=== PATIENT | female | born 1955 | race Asian ===

== ENCOUNTER 2022-08-07 18:35 | Inpatient (IN) | payer OTHER ==
[~2022-08-07 18:35] MED LIST: Iopamidol 370 76% 100 ML VIAL ONE
[2022-08-07 20:43] LABS: SARS-CoV-2 NAA Rapid Test DETECTED (NotDetected)
[2022-08-07 21:04] LABS: ALT (SGPT) 42 U/L (8-55); AST (SGOT) 66 U/L (5-34); Albumin 3.9 g/dL (3.4-4.8); Alkaline Phosphatase 105 U/L (40-110); BUN (Urea Nitrogen) 7 mg/dL (9.8-20.1); Bilirubin, Total 1.3 mg/dL (0.2-1.2); Calc. Creatinine Clearance 0 mL/min (70-130); Calcium 8.7 mg/dL (7.8-10.44); Carbon Dioxide 24 mmol/L (23-31); Estimated GFR 98; Glucose 137 mg/dL (80-115); Potassium 3.3 mmol/L (3.5-5.1); Protein, Total 7.9 g/dL (5.8-8.1)
[2022-08-07 21:05] LABS: #Basophils 0.1 10x3/uL (0.0-0.2); #Monocytes 1.1 10x3/uL (0.0-1.1); #Neutrophils 14.2 10x3/uL (1.5-8.4); %Basophils 0.3 % (0.0-2.0); %Eosinophils 0.2 % (0.0-6.0); %Lymphocytes 6.7 % (18.0-47.0); %Monocytes 6.5 % (0.0-10.0); %Neutrophils 85.5 % (40.0-75.0); Hemoglobin 14.4 g/dL (12.0-15.5); Mean Corpuscular Hemoglobin 32.1 pg (27.0-33.0); Mean Corpuscular Volume 78.2 fl (81.6-98.3); Mean Platelet Volume 8.4 fl (7.4-10.4); Platelet Count 276 10x3/uL (150-450); RBC Distribution Width 11.6 % (11.5-14.5); Red Blood Cell (RBC) Count 4.49 10x6/uL (3.90-5.03); White Blood Cell (WBC) Count 16.7 10x3/uL (3.5-10.5)
[2022-08-07 21:14] LABS: Sodium 101 mmol/L (136-145)
[2022-08-07 21:21] LABS: Chloride Less than 65 mmol/L (98-107)
[2022-08-07 21:40] LABS: Actual Bicarbonate (HCO3v) 30 mEq/L (22-28); Base Excess 6.5 mEq/L (-2.0 to +3.0); Calcium, Ionized (venous) 0.97 mmol/L (1.16-1.32); Chloride (VBG) 65 mmol/L (98-106); Potassium (VBG) 3.05 mmol/L (3.70-5.30); Puncture Site Other Site; pH (venous) 7.52 (7.32-7.43)
[2022-08-07] MEDS ORDERED: Ondansetron PF 4 MG/2 ML Vial IVP PRN (22:02)
[2022-08-07] MEDS ORDERED: Calcium Carbonate 500 MG ChewTAB PO PRN (22:02)
[2022-08-07] MEDS ORDERED: Senokot S 8.6-50 MG TAB PO PRN (22:02)
[2022-08-07] MEDS ORDERED: Acetaminophen 325 MG TAB PO PRN (22:02)
[2022-08-07] MEDS ORDERED: hydrALAZINE 20 MG/ML VIAL SLOW IVP PRN (22:13)
[2022-08-07 22:55] LABS: Free T4 (Free Thyroxine) 1.68 ng/dL (0.70-1.48); Thyroid Stimulating Hormone 0.1889 uIU/mL (0.35-4.94)
[2022-08-07 23:11] LABS: Alcohol Less than 10 mg/dL (Less than 10); Magnesium 1.4 mg/dL (1.6-2.6)
[2022-08-08] MEDS ORDERED: Potassium Chloride 20 MEQ TAB PO SCH ×2 (00:30→09:00)
[2022-08-08] MEDS ORDERED: Sodium Chloride 3% 100 ML IVPB SCH ×2 (00:30→07:30)
[2022-08-08] MEDS ORDERED: Furosemide 20 MG/2 ML VIAL SLOW IVP SCH (00:30)
[2022-08-08] MEDS ORDERED: Nitroglycerin 2% Ointment 1 INCH/1 GM Packet TOP SCH (00:30)
[2022-08-08 00:54] LABS: Bilirubin Neg (Negative); Blood, Urine 150 (Negative); Clarity Clear (Clear); Glucose, Urine (Dipstick) Normal (Negative); Ketone, Urine Negative (Negative); Leukocyte Negative (Negative); Nitrite Negative (Negative); Protein, Urine (Dipstick) 30 mg/dl (Neg-Trace); Urobilinogen Normal mg/dL (Less than 2)
[2022-08-08] MEDS ORDERED: Magnesium 2 GM/50 ML(in water) 2 GM in Premix Bag 1 BAG IVPB SCH (01:00)
[2022-08-08 01:08] LABS: Legionella Urinary Ag Negative (Negative); Strep pneumo Urine Ag NEGATIVE (NEGATIVE)
[2022-08-08 01:20] LABS: Bacteria/HPF None Seen HPF (None Seen); RBC/HPF 0-3 HPF (0-3); Squamous Epithelial 0-3 HPF (0-3)
[2022-08-08 01:24] LABS: Amphetamine Not Detected (NotDetected); Barbiturates Screen Not Detected (NotDetected); Benzodiazepine Screen Not Detected (NotDetected); Cocaine Metabolite Screen Not Detected (NotDetected); Methadone Not Detected (NotDetected); Methamphetamine Not Detected (NotDetected); Opiate Screen Not Detected (NotDetected); Oxycodone Screen Not Detected (NotDetected); Phencyclidine (PCP) Not Detected (NotDetected); THC/Cannabinoid Screen Not Detected (NotDetected); Tricyclic Screen Not Detected (NotDetected)
[2022-08-08 04:37] LABS: ALT (SGPT) 50 U/L (8-55); AST (SGOT) 80 U/L (5-34); Albumin 3.7 g/dL (3.4-4.8); Alkaline Phosphatase 103 U/L (40-110); BUN (Urea Nitrogen) 7 mg/dL (9.8-20.1); Bilirubin, Total 1.2 mg/dL (0.2-1.2); CRP (Inflammatory) 9.73 mg/dL (= or < 0.5); Calc. Creatinine Clearance 84 mL/min (70-130); Calcium 8.3 mg/dL (7.8-10.44); Carbon Dioxide 23 mmol/L (23-31); Estimated GFR 99; Globulin 3.8 g/dL (2.4-3.5); Glucose 109 mg/dL (80-115); Potassium 3.1 mmol/L (3.5-5.1); Protein, Total 7.5 g/dL (5.8-8.1)
[2022-08-08 04:41] LABS: Chloride Less than 65 mmol/L (98-107)
[2022-08-08 04:42] LABS: Sodium Less than 100 mmol/L (136-145)
[2022-08-08 05:06] VITALS: BMI 22.4
[2022-08-08 07:38] LABS: Hemoglobin 14.6 g/dL (12.0-15.5); Mean Corpuscular Volume 77.9 fl (81.6-98.3); Mean Platelet Volume 9.1 fl (7.4-10.4); RBC Distribution Width 11.7 % (11.5-14.5); Red Blood Cell (RBC) Count 4.75 10x6/uL (3.90-5.03); White Blood Cell (WBC) Count 16.7 10x3/uL (3.5-10.5)
[2022-08-08 07:39] LABS: Platelet Count 274 10x3/uL (150-450)
[2022-08-08 07:40] LABS: Mean Corpuscular HGB CONC 39.5 g/dL (32.0-36.0); Mean Corpuscular Hemoglobin 30.7 pg (27.0-33.0)
[2022-08-08 07:41] LABS: #Monocytes 1.7 10x3/uL (0.0-1.1); #Neutrophils 13.2 10x3/uL (1.5-8.4); %Basophils 0.2 % (0.0-2.0); %Eosinophils 0.1 % (0.0-6.0); %Monocytes 10.3 % (0.0-10.0); %Neutrophils 78.6 % (40.0-75.0)
[2022-08-08 08:27] LABS: BUN (Urea Nitrogen) 8 mg/dL (9.8-20.1); Calc. Creatinine Clearance 77 mL/min (70-130); Calcium 8.4 mg/dL (7.8-10.44); Carbon Dioxide 25 mmol/L (23-31); Estimated GFR 98; Glucose 117 mg/dL (80-115); Potassium 3.2 mmol/L (3.5-5.1); Sodium 100 mmol/L (136-145)
[2022-08-08] MEDS: Famotidine/PF 20 mg/2ml Vial SLOW IVP SCH ×2 (08:28→20:32)
[2022-08-08] MEDS: Enoxaparin Sodium 40 MG/0.4 ML SYRINGE SC SCH (08:28)
[2022-08-08] MEDS ORDERED: NIRMATRELVIR 150 MG/RITONAVIR 100 MG PO SCH ×3 (09:00)
[2022-08-08] MEDS: Magnesium 2 GM/50 ML(in water) 2 GM in Premix Bag 1 BAG IVPB SCH ×2 (09:00→10:39)
[2022-08-08 09:10] LABS: Platelet Morphology Comment Appears Adequate
[2022-08-08 09:11] LABS: Crenated RBC SLIGHT = 1-5 cells (100X) (None Seen); Elliptocytes SLIGHT = 2-5 cells (100X) (0-1/hpf); Polychromasia SLIGHT = 2-3 cells (100X) (0-2/hpf); Spherocytes SLIGHT = 1-5 cells (100X) (None Seen)
[2022-08-08 09:22] LABS: Phosphorus 1.9 mg/dL (2.3-4.7)
[2022-08-08 09:27] LABS: Chloride Less than 65 mmol/L (98-107)
[2022-08-08] MEDS: Potassium Chloride 20 MEQ TAB PO SCH ×2 (10:39→15:39)
[2022-08-08 12:16] LABS: Anion Gap 15 mmol/L (10-20); BUN (Urea Nitrogen) 8 mg/dL (9.8-20.1); Calc. Creatinine Clearance 79 mL/min (70-130); Carbon Dioxide 19 mmol/L (23-31); Estimated GFR 98; Glucose 164 mg/dL (80-115); Potassium 3.1 mmol/L (3.5-5.1)
[2022-08-08 12:21] LABS: Chloride 69 mmol/L (98-107); Sodium 100 mmol/L (136-145)
[2022-08-08] MEDS ORDERED: Sodium Chloride 1 GM TAB PO SCH (13:00)
[2022-08-08] MEDS ORDERED: Potassium Phosphate 30 MMOL in Sodium Chloride 0.9% 250 ML 250 ML IVPB SCH (13:00)
[2022-08-08 13:32] LABS: Sodium Less than 100.0 mmol/L (133-146)
[2022-08-08 13:33] LABS: Potassium, Urine 36.6 mmol/L
[2022-08-08] MEDS: Sodium Chloride 1 GM TAB PO SCH (15:39)
[2022-08-08 16:02] LABS: Anion Gap 13 mmol/L (10-20); BUN (Urea Nitrogen) 8 mg/dL (9.8-20.1); Calc. Creatinine Clearance 82 mL/min (70-130); Calcium 7.6 mg/dL (7.8-10.44); Carbon Dioxide 22 mmol/L (23-31); Estimated GFR 99; Glucose 101 mg/dL (80-115); Potassium 3.6 mmol/L (3.5-5.1)
[2022-08-08 16:03] LABS: Chloride 74 mmol/L (98-107); Sodium 105 mmol/L (136-145)
[2022-08-08 20:49] LABS: Anion Gap 12 mmol/L (10-20); BUN (Urea Nitrogen) 7 mg/dL (9.8-20.1); Calc. Creatinine Clearance 84 mL/min (70-130); Calcium 7.7 mg/dL (7.8-10.44); Carbon Dioxide 23 mmol/L (23-31); Chloride 80 mmol/L (98-107); Estimated GFR 100; Glucose 104 mg/dL (80-115); Potassium 4.9 mmol/L (3.5-5.1)
[2022-08-08 20:55] LABS: Sodium 110 mmol/L (136-145)
[2022-08-08] MEDS ORDERED: Dextrose 5% in Water 1,000 ML IV SCH (21:30)
[2022-08-09 00:54] LABS: Anion Gap 11 mmol/L (10-20); BUN (Urea Nitrogen) 7 mg/dL (9.8-20.1); Calc. Creatinine Clearance 87 mL/min (70-130); Calcium 7.9 mg/dL (7.8-10.44); Carbon Dioxide 22 mmol/L (23-31); Chloride 82 mmol/L (98-107); Estimated GFR 100; Glucose 100 mg/dL (80-115); Potassium 5.2 mmol/L (3.5-5.1)
[2022-08-09 00:55] LABS: Sodium 110 mmol/L (136-145)
[2022-08-09 04:43] LABS: Albumin 3.5 g/dL (3.4-4.8); Anion Gap 14 mmol/L (10-20); BUN (Urea Nitrogen) 7 mg/dL (9.8-20.1); Calc. Creatinine Clearance 79 mL/min (70-130); Calcium 8.2 mg/dL (7.8-10.44); Carbon Dioxide 21 mmol/L (23-31); Chloride 81 mmol/L (98-107); Estimated GFR 98; Glucose 88 mg/dL (80-115); Magnesium 2.3 mg/dL (1.6-2.6); Potassium 5.2 mmol/L (3.5-5.1)
[2022-08-09 04:45] LABS: Phosphorus 1.9 mg/dL (2.3-4.7); Sodium 111 mmol/L (136-145)
[2022-08-09] MEDS ORDERED: Sodium Phosphate 30 MMOL in Sodium Chloride 0.9% 250 ML 250 ML IVPB SCH (06:00)
[2022-08-09] MEDS: Enoxaparin Sodium 40 MG/0.4 ML SYRINGE SC SCH (07:50)
[2022-08-09] MEDS: Famotidine/PF 20 mg/2ml Vial SLOW IVP SCH ×2 (07:50→20:39)
[2022-08-09 08:53] LABS: Anion Gap 16 mmol/L (10-20); BUN (Urea Nitrogen) 6 mg/dL (9.8-20.1); Calc. Creatinine Clearance 78 mL/min (70-130); Calcium 8.2 mg/dL (7.8-10.44); Carbon Dioxide 19 mmol/L (23-31); Chloride 83 mmol/L (98-107); Estimated GFR 98; Glucose 102 mg/dL (80-115); Potassium 5.1 mmol/L (3.5-5.1)
[2022-08-09 08:58] LABS: Sodium 113 mmol/L (136-145)
[2022-08-09] MEDS ORDERED: Sodium Bicarbonate Tab 325 MG TAB PO SCH (09:00)
[2022-08-09 13:32] LABS: Anion Gap 15 mmol/L (10-20); BUN (Urea Nitrogen) 8 mg/dL (9.8-20.1); Calc. Creatinine Clearance 74 mL/min (70-130); Calcium 8.1 mg/dL (7.8-10.44); Carbon Dioxide 19 mmol/L (23-31); Chloride 83 mmol/L (98-107); Estimated GFR 97; Glucose 125 mg/dL (80-115); Potassium 4.4 mmol/L (3.5-5.1)
[2022-08-09 13:40] LABS: Sodium 113 mmol/L (136-145)
[2022-08-09] MEDS ORDERED: oxyCODONE 5 MG TAB PO PRN ×2 (16:19→16:33)
[2022-08-09] MEDS ORDERED: Ibuprofen 600 MG TAB PO PRN (16:47)
[2022-08-09] MEDS: Guaifenesin DM 100-10/5 ML UDCUP PO PRN (18:20)
[2022-08-09 19:25] LABS: Anion Gap 13 mmol/L (10-20); BUN (Urea Nitrogen) 9 mg/dL (9.8-20.1); Calc. Creatinine Clearance 69 mL/min (70-130); Calcium 8.6 mg/dL (7.8-10.44); Carbon Dioxide 24 mmol/L (23-31); Chloride 81 mmol/L (98-107); Estimated GFR 95; Glucose 175 mg/dL (80-115); Potassium 4.4 mmol/L (3.5-5.1)
[2022-08-09 19:34] LABS: Sodium 114 mmol/L (136-145)
[2022-08-09] MEDS: Sodium Chloride 1 GM TAB PO SCH (20:39)
[2022-08-09] MEDS: Sodium Bicarbonate Tab 325 MG TAB PO SCH (20:39)
[2022-08-09 21:21] LABS: Anion Gap 13 mmol/L (10-20); BUN (Urea Nitrogen) 10 mg/dL (9.8-20.1); Calc. Creatinine Clearance 72 mL/min (70-130); Calcium 8.3 mg/dL (7.8-10.44); Carbon Dioxide 22 mmol/L (23-31); Chloride 82 mmol/L (98-107); Estimated GFR 96; Glucose 129 mg/dL (80-115); Potassium 3.7 mmol/L (3.5-5.1)
[2022-08-09 21:23] LABS: Sodium 113 mmol/L (136-145)
[2022-08-10 02:44] LABS: Anion Gap 13 mmol/L (10-20); BUN (Urea Nitrogen) 9 mg/dL (9.8-20.1); Calc. Creatinine Clearance 82 mL/min (70-130); Calcium 8.4 mg/dL (7.8-10.44); Carbon Dioxide 23 mmol/L (23-31); Chloride 84 mmol/L (98-107); Estimated GFR 100; Glucose 106 mg/dL (80-115); Potassium 3.6 mmol/L (3.5-5.1)
[2022-08-10 02:48] LABS: Sodium 116 mmol/L (136-145)
[2022-08-10 03:22] LABS: Magnesium 1.9 mg/dL (1.6-2.6)
[2022-08-10] MEDS: Potassium Chloride 20 MEQ TAB PO SCH (08:07)
[2022-08-10] MEDS: Famotidine/PF 20 mg/2ml Vial SLOW IVP SCH ×2 (08:07→20:03)
[2022-08-10] MEDS: Sodium Bicarbonate Tab 325 MG TAB PO SCH ×3 (08:07→20:03)
[2022-08-10] MEDS: Enoxaparin Sodium 40 MG/0.4 ML SYRINGE SC SCH (08:07)
[2022-08-10] MEDS: Sodium Chloride 1 GM TAB PO SCH ×3 (08:08→20:02)
[2022-08-10 13:53] LABS: Anion Gap 15 mmol/L (10-20); BUN (Urea Nitrogen) 11 mg/dL (9.8-20.1); Calc. Creatinine Clearance 73 mL/min (70-130); Calcium 8.5 mg/dL (7.8-10.44); Carbon Dioxide 20 mmol/L (23-31); Chloride 84 mmol/L (98-107); Estimated GFR 97; Glucose 144 mg/dL (80-115); Potassium 4.1 mmol/L (3.5-5.1)
[2022-08-10 14:05] LABS: Sodium 115 mmol/L (136-145)
[2022-08-10 18:46] LABS: Anion Gap 14 mmol/L (10-20); BUN (Urea Nitrogen) 16 mg/dL (9.8-20.1); Calc. Creatinine Clearance 56 mL/min (70-130); Calcium 8.5 mg/dL (7.8-10.44); Carbon Dioxide 20 mmol/L (23-31); Chloride 86 mmol/L (98-107); Estimated GFR 77; Glucose 165 mg/dL (80-115); Potassium 3.7 mmol/L (3.5-5.1)
[2022-08-10 18:48] LABS: Sodium 116 mmol/L (136-145)
[2022-08-10 23:39] LABS: Anion Gap 12 mmol/L (10-20); BUN (Urea Nitrogen) 18 mg/dL (9.8-20.1); Calc. Creatinine Clearance 62 mL/min (70-130); Calcium 8.4 mg/dL (7.8-10.44); Carbon Dioxide 22 mmol/L (23-31); Chloride 89 mmol/L (98-107); Estimated GFR 86; Glucose 103 mg/dL (80-115); Potassium 4.1 mmol/L (3.5-5.1)
[2022-08-10 23:41] LABS: Sodium 119 mmol/L (136-145)
[2022-08-11 04:46] LABS: Albumin 3.3 g/dL (3.4-4.8); Anion Gap 15 mmol/L (10-20); BUN (Urea Nitrogen) 15 mg/dL (9.8-20.1); BUN/Creatinine Ratio 21.74; Calc. Creatinine Clearance 68 mL/min (70-130); Calcium 8.6 mg/dL (7.8-10.44); Carbon Dioxide 23 mmol/L (23-31); Cardiac Risk 2.2 (Less than 4.5); Chloride 88 mmol/L (98-107); Cholesterol 107 mg/dl (< 200 Desired); Estimated GFR 95; Glucose 91 mg/dL (80-115); HDL Cholesterol 49 mg/dL (>60 Neg Risk); LDL Cholesterol, Calculated 50 mg/dL; Magnesium 1.6 mg/dL (1.6-2.6); Phosphorus 2.8 mg/dL (2.3-4.7); Potassium 4.2 mmol/L (3.5-5.1); Sodium 122 mmol/L (136-145); Triglycerides 40 mg/dL (Less than 150)
[2022-08-11 05:01] LABS: Hemoglobin 14.3 g/dL (12.0-15.5); Platelet Count 265 10x3/uL (150-450)
[2022-08-11 05:02] LABS: Mean Corpuscular HGB CONC 37.7 g/dL (32.0-36.0); Mean Corpuscular Hemoglobin 30.7 pg (27.0-33.0); Mean Corpuscular Volume 81.4 fl (81.6-98.3); Mean Platelet Volume 7.9 fl (7.4-10.4); RBC Distribution Width 12.3 % (11.5-14.5); Red Blood Cell (RBC) Count 4.73 10x6/uL (3.90-5.03); White Blood Cell (WBC) Count 11.1 10x3/uL (3.5-10.5)
[2022-08-11 05:03] LABS: MDiff Complete? YES
[2022-08-11 05:50] LABS: Lymphocytes 18 % (21-51); Monocytes 17 % (0-10); Neutrophil 65 % (42-75)
[2022-08-11 05:53] LABS: Crenated RBC SLIGHT = 1-5 cells (100X) (None Seen); Elliptocytes SLIGHT = 2-5 cells (100X) (0-1/hpf)
[2022-08-11 05:54] LABS: Platelet Morphology Comment Appears Adequate
[2022-08-11] MEDS: Potassium Chloride 20 MEQ TAB PO SCH (08:49)
[2022-08-11] MEDS: Sodium Bicarbonate Tab 325 MG TAB PO SCH ×3 (08:50→21:27)
[2022-08-11] MEDS: Famotidine/PF 20 mg/2ml Vial SLOW IVP SCH ×2 (08:50→21:27)
[2022-08-11] MEDS: Enoxaparin Sodium 40 MG/0.4 ML SYRINGE SC SCH (08:50)
[2022-08-11] MEDS: Sodium Chloride 1 GM TAB PO SCH ×3 (08:51→21:27)
[2022-08-11 11:59] LABS: Hemoglobin A1c 5.8 % (4.0-6.0)
[2022-08-11] MEDS ORDERED: Lisinopril 20 MG TAB PO SCH (13:30)
[2022-08-11] MEDS ORDERED: Amlodipine 5 MG TAB PO SCH (13:30)
[2022-08-11] MEDS ORDERED: Rosuvastatin 20 MG TAB PO SCH (21:00)
[2022-08-12 04:37] LABS: Anion Gap 13 mmol/L (10-20); BUN (Urea Nitrogen) 15 mg/dL (9.8-20.1); Calc. Creatinine Clearance 62 mL/min (70-130); Calcium 9.1 mg/dL (7.8-10.44); Carbon Dioxide 26 mmol/L (23-31); Chloride 89 mmol/L (98-107); Estimated GFR 92; Glucose 92 mg/dL (80-115); Magnesium 1.6 mg/dL (1.6-2.6); Potassium 4.7 mmol/L (3.5-5.1); Sodium 123 mmol/L (136-145)
[2022-08-12 05:50] LABS: Mean Corpuscular HGB CONC 36.8 g/dL (32.0-36.0); Mean Corpuscular Hemoglobin 30.5 pg (27.0-33.0); Mean Corpuscular Volume 83.1 fl (81.6-98.3); Mean Platelet Volume 7.7 fl (7.4-10.4); Platelet Count 368 10x3/uL (150-450); RBC Distribution Width 12.7 % (11.5-14.5); Red Blood Cell (RBC) Count 4.91 10x6/uL (3.90-5.03); White Blood Cell (WBC) Count 10.4 10x3/uL (3.5-10.5)
[2022-08-12 06:22] LABS: Band 4 % (5-11); Eosinophils 1 % (0-10); Lymphocytes 17 % (21-51); Monocytes 16 % (0-10); Neutrophil 57 % (42-75); Reactive Lymphocytes 5 % (0-10)
[2022-08-12 06:23] LABS: MDiff Complete? YES; Platelet Morphology Comment Appears Adequate
[2022-08-12] MEDS: Famotidine/PF 20 mg/2ml Vial SLOW IVP SCH ×2 (08:59→21:05)
[2022-08-12] MEDS: Enoxaparin Sodium 40 MG/0.4 ML SYRINGE SC SCH (08:59)
[2022-08-12] MEDS ORDERED: Lisinopril 20 MG TAB PO SCH (09:00)
[2022-08-12] MEDS: Amlodipine 5 MG TAB PO SCH (09:00)
[2022-08-12] MEDS: Magnesium Oxide 400 MG TAB PO SCH ×2 (09:00→21:05)
[2022-08-12] MEDS: Sodium Chloride 1 GM TAB PO SCH ×3 (09:01→21:05)
[2022-08-13] MEDS: Guaifenesin DM 100-10/5 ML UDCUP PO PRN (00:34)
[2022-08-13 06:14] LABS: Anion Gap 14 mmol/L (10-20); BUN (Urea Nitrogen) 13 mg/dL (9.8-20.1); Calc. Creatinine Clearance 65 mL/min (70-130); Calcium 9.2 mg/dL (7.8-10.44); Carbon Dioxide 26 mmol/L (23-31); Chloride 90 mmol/L (98-107); Estimated GFR 95; Glucose 96 mg/dL (80-115); Magnesium 1.6 mg/dL (1.6-2.6); Potassium 4.6 mmol/L (3.5-5.1); Sodium 125 mmol/L (136-145)
[2022-08-13 06:16] LABS: Mean Corpuscular HGB CONC 36.6 g/dL (32.0-36.0)
[2022-08-13 06:17] LABS: Platelet Count 397 10x3/uL (150-450)
[2022-08-13 06:18] LABS: Hemoglobin 14.9 g/dL (12.0-15.5); Mean Corpuscular Hemoglobin 30.7 pg (27.0-33.0); Mean Corpuscular Volume 83.7 fl (81.6-98.3); Mean Platelet Volume 7.5 fl (7.4-10.4); RBC Distribution Width 12.6 % (11.5-14.5); Red Blood Cell (RBC) Count 4.86 10x6/uL (3.90-5.03); White Blood Cell (WBC) Count 8.1 10x3/uL (3.5-10.5)
[2022-08-13 06:34] LABS: MDiff Complete? YES
[2022-08-13 06:35] LABS: Platelet Morphology Comment Appears Adequate
[2022-08-13 06:38] LABS: Band 2 % (5-11); Lymphocytes 23 % (21-51); Monocytes 14 % (0-10); Neutrophil 55 % (42-75); Reactive Lymphocytes 4 % (0-10)
[2022-08-13] MEDS: Magnesium Oxide 400 MG TAB PO SCH (07:51)
[2022-08-13] MEDS: Enoxaparin Sodium 40 MG/0.4 ML SYRINGE SC SCH (07:51)
[2022-08-13] MEDS: Magnesium 2 GM/50 ML(in water) 2 GM in Premix Bag 1 BAG IVPB SCH ×2 (07:51→09:39)
[2022-08-13] MEDS: Amlodipine 5 MG TAB PO SCH (07:51)
[2022-08-13] MEDS: Sodium Chloride 1 GM TAB PO SCH ×2 (07:52→16:14)
[2022-08-13] MEDS: Famotidine/PF 20 mg/2ml Vial SLOW IVP SCH (07:52)
[2022-08-13 16:51] VITALS: BP 130/74; TEMP 98
[2022-08-13] MEDS ORDERED: Carvedilol 3.125 MG TAB PO SCH (21:00)
[2022-08-13] MEDS ORDERED: Rosuvastatin 20 MG TAB PO SCH (21:00)
[2022-08-14] MEDS ORDERED: Losartan 25 MG TAB PO SCH (09:00)
== END 2022-08-13 17:17 | disposition home or self-care (01) | DRG 177 ==
LOC: CSHERS 18:35 → CSHICU 23:11 → CSHTELE 08-11 14:08
PROVIDERS: ADMIT Student in an Organized Health Care Education/Training Program; ATTEND Family Medicine
PROC: 8E0ZXY6 Isolation (ICD-10-PCS; 2022-08-07)
PROC: XW0DXF5 Introduction of Other New Technology Therapeutic Substance into Mouth and Pharynx, External Approach, New Technology Group 5 (ICD-10-PCS; principal; 2022-08-08)
DX: U07.1 COVID-19 (principal); G93.41 Metabolic encephalopathy; J12.82 Pneumonia due to coronavirus disease 2019; I42.9 Cardiomyopathy, unspecified; E22.2 Syndrome of inappropriate secretion of antidiuretic hormone; E87.2 Acidosis; E87.6 Hypokalemia; I16.0 Hypertensive urgency; I10 Essential (primary) hypertension; R33.9 Retention of urine, unspecified; E83.42 Hypomagnesemia; E05.90 Thyrotoxicosis, unspecified without thyrotoxic crisis or storm; I27.20 Pulmonary hypertension, unspecified; Z88.8 Allergy status to other drugs, medicaments and biological substances
CPT/HCPCS: 36415; 70450; 71045; 71260; 80048; 80053; 80061; 80069; 80306; 80307; 81001; 82040; 82306; 82436; 82533; 82805; 83036; 83605; 83735; 83880; 83930; 83935; 84100; 84133; 84145; 84300; 84439; 84443; 84484; 85025; 86140; 87081; 87449; 87899; 93005; 93306; 94760; J1650; J1940; J1956; J3475; J7050; J7070; J7131; Q9967; S0028